=== PATIENT | male | born 1965 | race Caucasian/White ===

== ENCOUNTER 2017-04-17 13:40 | Emergency (ER) | payer OTHER ==
[2017-04-17 13:46] VITALS: RESP 20; TEMP 97.8
[2017-04-17] MEDS ORDERED: TDAP VACCINE 0.5 ML SUS IM ONE ×2 (14:13→14:17)
[2017-04-17] MEDS ORDERED: LIDOCAINE BUFFERED 1% 50 ML SOL SC ONE (14:13)
[2017-04-17] MEDS ORDERED: LIDOCAINE HCL 1% MPF SOL ONE (14:17)
[2017-04-17] MEDS ORDERED: LIDOCAINE HCL 1% MPF SOL SC ONE (14:36)
[2017-04-17 14:38] VITALS: BP 144/72; PULSE 88; O2SAT 96
== END 2017-04-17 14:45 | disposition home or self-care (01) ==
LOC: ED 13:40
DX: S61.411A Laceration without foreign body of right hand, initial encounter (principal); W27.8XXA Contact with other nonpowered hand tool, initial encounter
CPT/HCPCS: 12002; 90715; 99284; J2001

== ENCOUNTER 2019-03-09 12:13 | Emergency (ER) | payer BC, OTHER ==
[2019-03-09] MEDS ORDERED: CYCLOBENZAPRINE 10 MG TAB PO ONE (12:29)
[2019-03-09] MEDS ORDERED: KETOROLAC TROMETHAMINE 30 MG/ML SOL IM ONE (12:30)
[2019-03-09] MEDS ORDERED: CYCLOBENZAPRINE 10 MG TAB ONE (12:35)
[2019-03-09] MEDS ORDERED: KETOROLAC TROMETHAMINE 30 MG/ML SOL ONE (12:35)
[2019-03-09 13:08] LABS: CALCIUM 8.6 mg/dl (8.5-10.1); CARBON DIOXIDE 30.3 mEq/L (21-32); CREATININE 1.14 mg/dl (0.80-1.30)
[2019-03-09 13:11] VITALS: PULSE 82; RESP 16; TEMP 98.2
[2019-03-09] MEDS ORDERED: ACETAMINOPHEN 500 MG 500 MG TAB PO ONE (13:11)
[2019-03-09 13:17] VITALS: BP 172/92; O2SAT 98
== END 2019-03-09 14:25 | disposition home or self-care (01) ==
LOC: ED 12:13
DX: S29.8XXA Other specified injuries of thorax, initial encounter (principal); W22.8XXA Striking against or struck by other objects, initial encounter
CPT/HCPCS: 36415; 71046; 71100; 80048; 82962; 96372; 99283; J1885; A9270-GY